=== PATIENT | male | born 1980 | race American Indian/Alaskan Native ===

== ENCOUNTER 2017-04-26 09:22 | Emergency (ER) | payer OTHER ==
[2017-04-26 09:26] VITALS: BP 125/82; PULSE 103; RESP 18; TEMP 98.1; O2SAT 98
--- NOTE | 2017-04-26 10:22 | RAD ---
PROCEDURE: Radiographs of the Right Shoulder HISTORY: r/o fx COMPARISON: No prior. FINDINGS: BONES: Normal. No fracture. JOINTS: Normal. Glenohumeral and acromioclavicular joints preserved. No osteoarthritis. SOFT TISSUES: Normal. OTHER FINDINGS: None. IMPRESSION: Normal radiographs of the right shoulder.
--- NOTE | 2017-04-26 12:55 | C.PDOC ---
History Of Present Illness 36 yr old male presents to the ER with complaints of right shoulder for the past 3 weeks. Patient is right handed. Denies trauma, fall, neck pain, back pain , weakness or numbness. No PMD. Time Seen by Provider: 04/26/17 09:31 Chief Complaint (Nursing): Upper Extremity Problem/Injury History Per: Patient History/Exam Limitations: no limitations Onset/Duration Of Symptoms: Days (3 weeks) Current Symptoms Are (Timing): Still Present Exacerbating Factor(s): Nothing Past Medical History Vital Signs: Last Vital Signs Temp 98.1 F 04/26/17 09:25 Pulse 103 H 04/26/17 09:25 Resp 18 04/26/17 09:25 BP 125/82 04/26/17 09:25 Pulse Ox 98 04/26/17 13:36 - [facility] Procedures OTHER SKIN & SUBQ I D (06/28/15) Family History: States: No Known Family Hx - Social History Hx Tobacco Use: No Hx Alcohol Use: Yes Hx Substance Use: No - Immunization History Hx Tetanus Toxoid Vaccination: No Hx Influenza Vaccination: No Hx Pneumococcal Vaccination: No Review Of Systems Except As Marked, All Systems Reviewed And Found Negative. Musculoskeletal: Positive for: Shoulder Pain (Right shoulder ). Negative for: Neck Pain, Back Pain Neurological: Negative for: Weakness, Numbness Physical Exam - Physical Exam Appears: Non-toxic, No Acute Distress Skin: Warm, Dry, No Rash Head: Atraumatic, Normacephalic Neck: Normal, Normal ROM, Supple Chest: Symmetrical, No Tenderness Cardiovascular: Rhythm Regular, No Murmur Respiratory: Normal Breath Sounds, No Rales, No Rhonchi, No Stridor, No Wheezing Extremity: Capillary Refill (<2), Other ((+) Right Shoulder - Decrease ROM with abbduction.) Pulses: Left Radial: Normal, Right Radial: Normal Neurological/Psych: Oriented x3, Normal Speech, Normal Motor ED Course And Treatment O2 Sat by Pulse Oximetry: 98 - Other Rad X-Ray - Right Shoulder X-Ray: Viewed By Me, Read By Radiologist Interpretation: PROCEDURE: Radiographs of the Right Shoulder. HISTORY: r/o fx. COMPARISON: No prior. FINDINGS: BONES: Normal. No fracture. JOINTS: Normal. Glenohumeral and acromioclavicular joints preserved. No osteoarthritis. SOFT TISSUES: Normal. OTHER FINDINGS: None. IMPRESSION: Normal radiographs of the right shoulder. Medical Decision Making Medical Decision Making: PLAN: * X-Ray - Right Shoulder Disposition - Disposition Referrals: [facility] [Outside] [facility] [Outside] Disposition: HOME/ ROUTINE Disposition Time: 10:05 Condition: GOOD Additional Instructions: Thank you for letting us take care of you today. Your provider was Dr. Robbins. You were treated for shoulder pain. The emergency medical care you received today was directed at your acute symptoms. If you were prescribed any medication, please fill it and take as directed. It may take several days for your symptoms to resolve. Return to the Emergency Department if your symptoms worsen, do not improve, or if you have any other problems. Please contact your doctor or call one of the physicians/clinics you have been referred to that are listed on the Patient Visit Information form that is included in your discharge packet. Bring any paperwork you were given at discharge with you along with any medications you are taking to your follow up visit. Our treatment cannot replace ongoing medical care by a primary care provider (PCP) outside of the emergency department. Thank you for allowing the [facility] team to be part of your care today. Follow up with the clinic for outpatient care and re-evaluation in 5-7 days. Prescriptions: Ibuprofen [Motrin] 600 mg PO Q6 PRN #20 tab PRN Reason: Pain, Moderate (4-7) Instructions: Shoulder Pain (ED) - Clinical Impression Clinical Impression: Shoulder pain - Scribe Statement The provider has reviewed the documentation as recorded by the Dalila Alvarez Provider Attestation: All medical record entries made by the Dalila were at my direction and personally dictated by me. I have reviewed the chart and agree that the record accurately reflects my personal performance of the history, physical exam, medical decision making, and the department course for this patient. I have also personally directed, reviewed, and agree with the discharge instructions and disposition.
== END 2017-04-26 10:32 | disposition home or self-care (01) ==
LOC: C.ER 09:22
DX: M25.511 Pain in right shoulder (principal)

== ENCOUNTER 2017-05-29 11:52 | Emergency (ER) | payer SELFPAY ==
--- NOTE | 2017-05-29 12:11 | C.PDOC ---
History Of Present Illness 36 yo male w/o significant PMHx come in for evaluation of painful mas over Right buttock gradually worse for past 3 days. Pt denies fever, chills, wound draining, denies UTI sx, testicular pain or swelling, denies any other active complaints. Pt reports, similar sx in past, same place. Time Seen by Provider: 05/29/17 12:05 History Per: Patient Onset/Duration Of Symptoms: Gradual Past Medical History Reviewed: Historical Data, Nursing Documentation, Vital Signs Vital Signs: Last Vital Signs Temp 98.7 F 05/29/17 12:15 Pulse 94 H 05/29/17 12:15 Resp 18 05/29/17 12:15 BP 133/94 H 05/29/17 12:15 Pulse Ox 97 05/29/17 12:15 - Medical History PMH: No Chronic Diseases Denies: Alzheimer's Disease, Asthma, Atrial Fibrillation, Bronchitis, Cardia Arrhythmia, Cardiac Aneurysm, CHF, COPD, Dementia, Deep Vein Thrombosis, Emphysema, HTN, Hypercholesterolemia, Hyperlipidemia, Migraine, Mitral Valve Prolapse, Multiple Sclerosis, Parkinson's Disease, Pericarditis, Peripheral Edema, Pneumonia, Pneumothorax, Pulmonary Embolism, Seizures, Sleep Apnea, TIA Surgical History: Denies: Pacemaker - [facility] Procedures OTHER SKIN & SUBQ I D (06/28/15) Family History: States: No Known Family Hx - Social History Hx Tobacco Use: No Hx Alcohol Use: Yes Hx Substance Use: No - Immunization History Hx Tetanus Toxoid Vaccination: No Hx Influenza Vaccination: No Hx Pneumococcal Vaccination: No Review Of Systems Except As Marked, All Systems Reviewed And Found Negative. Constitutional: Negative for: Fever, Chills ENT: Negative for: Throat Pain Gastrointestinal: Negative for: Nausea, Vomiting, Abdominal Pain, Diarrhea Genitourinary: Negative for: Dysuria Musculoskeletal: Negative for: Neck Pain, Back Pain Skin: Positive for: Lesions Neurological: Negative for: Weakness, Numbness Physical Exam - Physical Exam Appears: Well, Non-toxic, No Acute Distress Skin: Normal Color, Warm, Other (Right inner gluteus tender mass 3cm diameter, ( +) erythema, (+) flatulance.) Gastrointestinal/Abdominal: Soft, No Tenderness, No Distention, No Guarding Back: No CVA Tenderness Male Genital: No Testicular Tenderness, No Testicular Swelling, No Scrotal Swelling Extremity: No Pedal Edema, No Deformity Neurological/Psych: Oriented x3, Normal Speech ED Course And Treatment O2 Sat by Pulse Oximetry: 97 Progress Note: On re-eavl, pt is afebrile, hemodynamicaly tsable. Non-toxic. Abd: benign. SKin: Right gluteal abscess s/p I&D. WOund cx-penidng. Pt advised, abx given. Ref. return to ED in 2 days for wound check. Return at any time if any worsening or new changes. - Incision & Drainage Of Abscess Anesthesia: Lidocaine 2% Prep Used: Betadine Procedure: Incised W/Scalpel Blade#:, Drained Pus (5ml), Irrigated Cavity W/ Saline (50ml), Probed To Break Up Loculations, Packed W/Gauze, Cultures Obtained And Sent To Lab Disposition Counseled Patient/Family Regarding: Studies Performed, Diagnosis, Need For Followup, Rx Given - Disposition Disposition: HOME/ ROUTINE Disposition Time: 12:41 Condition: STABLE Additional Instructions: Take medication as prescribed Keep wound clean, dry Return to ED in 2 days for wound check and packing removal. Return to ED at any time if any worsening or new changes. Prescriptions: Sulfamethoxazole/Trimethoprim [Bactrim DS 800 mg-160 mg] 1 tab PO BID #14 tab traMADol [Ultram] 50 mg PO BID #7 tab Instructions: Abscess (ED), Abscess Incision and Drainage (ED) - Clinical Impression Clinical Impression: Abscess
[2017-05-29] MEDS ORDERED: Lidocaine 2% w Epi 1:100,000 Inj IJ ONE (12:16)
[2017-05-29] MEDS ORDERED: Tmp-Smz 800 mg-160 mg DS Tab ONE (12:45)
[2017-05-29] MEDS ORDERED: Tmp-Smz 800 mg-160 mg DS Tab PO SCH (12:45)
[2017-05-29 13:48] VITALS: BP 138/85; PULSE 96; RESP 20; TEMP 98.2; O2SAT 98
== END 2017-05-29 12:47 | disposition home or self-care (01) ==
LOC: C.ER 11:52
DX: L02.31 Cutaneous abscess of buttock (principal); B95.61 Methicillin susceptible Staphylococcus aureus infection as the cause of diseases classified elsewhere

== ENCOUNTER 2017-10-10 10:32 | Observation (INO) | payer SELFPAY ==
--- NOTE | 2017-10-10 11:22 | C.PDOC ---
History Of Present Illness 37 year old male with a PMHx of multiple perirectal abscesses presents to the ED with complaints of a perirectal abscess for 2 days. Patient notes subjective fever. Patient denies chills, weakness, numbness, incontinence, or other complaints at this time. Time Seen by Provider: 10/10/17 10:48 Chief Complaint (Nursing): Abnormal Skin Integrity History Per: Patient History/Exam Limitations: no limitations Onset/Duration Of Symptoms: Days (2) Current Symptoms Are (Timing): Still Present Recent travel outside of the [place]: No Past Medical History Reviewed: Historical Data, Nursing Documentation, Vital Signs Vital Signs: Last Vital Signs Temp 98.1 F 10/10/17 16:10 Pulse 58 L 10/10/17 16:10 Resp 20 10/10/17 16:10 BP 110/68 10/10/17 16:10 Pulse Ox 99 10/10/17 16:10 - Medical History PMH: Denies: Bronchitis, Multiple Sclerosis Surgical History: Denies: Pacemaker - [facility] Procedures OTHER SKIN & SUBQ I D (06/28/15) Family History: States: Unknown Family Hx - Social History Hx Tobacco Use: No Hx Alcohol Use: Yes Hx Substance Use: No - Immunization History Hx Tetanus Toxoid Vaccination: No Hx Influenza Vaccination: No Hx Pneumococcal Vaccination: No Review Of Systems Constitutional: Positive for: Fever (subjective). Negative for: Chills Gastrointestinal: Negative for: Vomiting, Abdominal Pain, Diarrhea Genitourinary: Negative for: Dysuria, Hematuria Skin: Positive for: Other (perianal abscess) Neurological: Negative for: Weakness, Numbness Physical Exam - Physical Exam Appears: Non-toxic, No Acute Distress Skin: Warm, Dry, Other (fluctuant, 3 cm round, fluctuant perirectal abscess on right side, ( no drainage) with pustule about 1 cm lateral) Head: Atraumatic, Normacephalic, No Tenderness Eye(s): bilateral: Normal Inspection Oral Mucosa: Moist Neck: Supple Chest: Symmetrical, No Deformity Cardiovascular: No Murmur, Other (patient is tachycardic) Respiratory: No Rales, No Rhonchi, No Wheezing, Other (clear to auscultation bilaterally) Gastrointestinal/Abdominal: Soft, No Tenderness, No Distention, No Guarding, No Rebound Rectal: Tenderness (right side of rectum ), Other (perirectal abscess 3 cm, fluctuant) Back: No Vertebral Tenderness, No Paraspinal Tenderness Extremity: Normal ROM, No Tenderness Neurological/Psych: Oriented x3, Normal Speech, Normal Cognition ED Course And Treatment - Laboratory Results Result Diagrams: 10/10/17 11:27 10/10/17 11:27 O2 Sat by Pulse Oximetry: 97 (RA) Pulse Ox Interpretation: Normal - CT Scan/US Abdomen Pelvis CT Other Rad Studies (CT/US): Read By Radiologist, Radiology Report Reviewed CT/US Interpretation: FINDINGS: LOWER THORAX: There is dependent atelectasis in the lungs. LIVER: The liver is normal in size and there is homogeneous enhancement. No gross lesion or ductal dilatation. GALLBLADDER AND BILE DUCTS: There are no calcified gallstones. PANCREAS: Normal in size with homogeneous enhancement. No gross lesion or ductal dilatation. SPLEEN: Normal in size and appearance. ADRENALS: No discrete nodule. KIDNEYS AND URETERS: Normal in size with homogeneous enhancement. No hydronephrosis. No solid mass. VASCULATURE: No aortic aneurysm. BOWEL: The small bowel loops are normal in caliber. The colon is unremarkable. There is no bowel dilatation or obstruction. There is a 3.8 x 2.8 x 4.0 cm locular peripheral rim enhancing collection in the right hemipelvis abutting the right lateral wall of the sigmoid colon. There is also a smaller more posterior fluid collection. APPENDIX: Normal appendix. PERITONEUM: No free fluid. No free air. LYMPH NODES: No enlarged lymph nodes. BLADDER: Grossly normal in appearance. REPRODUCTIVE: The prostate gland is normal in size. BONES: No acute fracture. Within normal limits for the patient's age. OTHER FINDINGS: There is a 2.6 x 1.9 cm fluid density collection in the right perianal region. There is also soft tissue swelling and extensive fat stranding in the right ischiorectal fossa. IMPRESSION: Findings are most compatible with 2.6 x 1.9 cm right perianal fluid collection/ abscess and 3.8 x 2.8 x 4.0 cm multilocular fluid collection/ abscess in the right hemipelvis. Progress Note: Abdomen & Pelvis CT, blood work and labs were ordered. Patient was given morphine. Medical Decision Making Medical Decision Making: pt with perirectal abscess; will get labs, ct ab/pelvis with iv contrast to fully evaluate abscess and surgical consult. 220 pm pt seen by surgery, will admit to Dr Vital;s service, give iv antibiotic, npo after midnight. Disposition Discussed With .: Melyssa Vital Doctor Will See Patient In The: Hospital - Disposition Disposition: HOSPITALIZED Disposition Time: 14:30 Condition: STABLE - Clinical Impression Clinical Impression: Kailey-rectal abscess - PA / [employer] / Resident Statement MD/DO has reviewed & agrees with the documentation as recorded. - Scribe Statement The provider has reviewed the documentation as recorded by the Scribe Shannan Simons All medical record entries made by the Kathrynibphil were at my direction and personally dictated by me. I have reviewed the chart and agree that the record accurately reflects my personal performance of the history, physical exam, medical decision making, and the department course for this patient. I have also personally directed, reviewed, and agree with the discharge instructions and disposition.
[2017-10-10 11:38] LABS: BASO # 0.1 K/uL (0.0-0.2); BASO % 0.5 % (0.0-2.0); EOS # 0.1 K/uL (0.0-0.7); EOS % 0.5 % (0.0-4.0); HEMATOCRIT 48.1 % (35.0-51.0); LYMPH # 1.5 K/uL (1.0-4.3); LYMPH % 13.1 % (20.0-40.0); MEAN CELL VOLUME 91.9 fL (80.0-94.0); MEAN CORPUSCULAR HEMOGLOBIN 31.2 pg (27.0-31.0); MEAN PLATELET VOLUME 7.7 fL (7.2-11.7); MONO # 1.1 K/uL (0.0-0.8); MONO % 9.5 % (0.0-10.0); RED CELL DISTRIBUTION WIDTH 14.7 % (11.5-14.5); WHITE BLOOD COUNT 11.5 K/uL (4.8-10.8)
[2017-10-10 11:43] LABS: INR 1.1
[2017-10-10 11:52] LABS: ALB/GLOB RATIO 1.1 (1.0-2.1); ALKALINE PHOSPHATASE 73 U/L (38-126); ALT/SGPT 19 U/L (21-72); AST/SGOT 18 U/L (17-59); BILIRUBIN,TOTAL 1.2 mg/dL (0.2-1.3); BLOOD UREA NITROGEN 7 mg/dL (9-20); CALCIUM 8.3 mg/dl (8.6-10.4); CARBON DIOXIDE 28 mmol/L (22-30); CHLORIDE 100 mmol/L (98-107); GFR AFRICAN-AMERICAN > 60; GLUCOSE,RANDOM 98 mg/dL (75-110); POTASSIUM 3.5 mmol/L (3.6-5.2); SODIUM 133 mmol/L (132-148); TOTAL PROTEIN 7.4 g/dL (6.3-8.3)
[2017-10-10] MEDS ORDERED: Iodixanol 320 MG/ML 100 ML BOTTLE IV ONE (12:01)
[2017-10-10] MEDS ORDERED: Lactated Ringer's 1,000 ML IV ONE (12:03)
[2017-10-10] MEDS ORDERED: Lactated Ringer's 1,000 ML ONE (12:13)
--- NOTE | 2017-10-10 13:18 | CT ---
PROCEDURE: CT Abdomen and Pelvis with contrast HISTORY: eval right side perirectal abscess COMPARISON: None. TECHNIQUE: CT scan of the abdomen and pelvis was performed after intravenous administration of contrast oral contrast was not administered. Coronal and sagittal reformatted images were obtained. Contrast dose: 100 mL Visipaque Radiation dose: Total exam DLP = 297.19 mGy-cm. This CT exam was performed using one or more of the following dose reduction techniques: Automated exposure control, adjustment of the mA and/or kV according to patient size, and/or use of iterative reconstruction technique. FINDINGS: LOWER THORAX: There is dependent atelectasis in the lungs. LIVER: The liver is normal in size and there is homogeneous enhancement. No gross lesion or ductal dilatation. GALLBLADDER AND BILE DUCTS: There are no calcified gallstones. PANCREAS: Normal in size with homogeneous enhancement. No gross lesion or ductal dilatation. SPLEEN: Normal in size and appearance. ADRENALS: No discrete nodule. KIDNEYS AND URETERS: Normal in size with homogeneous enhancement. No hydronephrosis. No solid mass. VASCULATURE: No aortic aneurysm. BOWEL: The small bowel loops are normal in caliber. The colon is unremarkable. There is no bowel dilatation or obstruction. There is a 3.8 x 2.8 x 4.0 cm locular peripheral rim enhancing collection in the right hemipelvis abutting the right lateral wall of the sigmoid colon. There is also a smaller more posterior fluid collection. APPENDIX: Normal appendix. PERITONEUM: No free fluid. No free air. LYMPH NODES: No enlarged lymph nodes. BLADDER: Grossly normal in appearance. REPRODUCTIVE: The prostate gland is normal in size. BONES: No acute fracture. Within normal limits for the patient's age. OTHER FINDINGS: There is a 2.6 x 1.9 cm fluid density collection in the right perianal region. There is also soft tissue swelling and extensive fat stranding in the right ischiorectal fossa IMPRESSION: Findings are most compatible with 2.6 x 1.9 cm right perianal fluid collection/ abscess and 3.8 x 2.8 x 4.0 cm multilocular fluid collection/ abscess in the right hemipelvis.
[2017-10-10] MEDS ORDERED: Piperacill/Tazo 3.375gm in Dex 3.375 GM/50 ML BAG IVPB STA (14:28)
--- NOTE | 2017-10-10 15:47 | CP.PCM.HP ---
History of Present Illness - History of Present Illness History of Present Illness: - History of Present Illness History of Present Illness: General Surgery Consult Note for Dr. Vital This 37M with a PMH of repeat self treated gluteal abscesses presents to the Ed with a gluteal abscess. he reports that he has had subjective fevers and gluteal pain for 2 days. Nothing makes it better and touching it makes it worse. Today he comes to the ED with self draining malodorus abscess. He went for a CT scan which is significant for a gluteal abscess and a pericolonic rim enhancing lesion. He denies any chest pain SOB nausea vomiting or diarrhea. PMH:George PSH: Denies Social: Denies tobacco, etoh, drugs All: NKDA Review of Systems - Review of Systems All systems: reviewed and no additional remarkable complaints except - Constitutional Constitutional: Chills, Fever - Integumentary Integumentary: New Lesions Past Patient History - Infectious Disease Hx of Infectious Diseases: None - Past Social History Smoking Status: Cigars - CARDIAC Hx Pacemaker: No - PULMONARY Hx Bronchitis: No - NEUROLOGICAL Hx Multiple Sclerosis: No - HEENT Other/Comment: None - RENAL Other/Comment: none - ENDOCRINE/METABOLIC Other/Comment: None - HEMATOLOGICAL/ONCOLOGICAL Other/Comment: None - INTEGUMENTARY Other/Comment: None - MUSCULOSKELETAL/RHEUMATOLOGICAL Other/Comment: None - GASTROINTESTINAL Other/Comment: None - GENITOURINARY/GYNECOLOGICAL Other/Comment: None - PSYCHIATRIC Hx Substance Use: No - SURGICAL HISTORY Hx Surgeries: No Other/Comment: None - ANESTHESIA Hx Anesthesia: No Meds Allergies/Adverse Reactions: Allergies Allergy/AdvReac Type Severity Reaction Status Date / Time No Known Allergies Allergy Verified 10/10/17 10:48 Physical Exam - Constitutional Appears: Non-toxic, No Acute Distress - Head Exam Head Exam: ATRAUMATIC, NORMOCEPHALIC - Eye Exam Eye Exam: EOMI - ENT Exam ENT Exam: Mucous Membranes Moist - Respiratory Exam Respiratory Exam: NORMAL BREATHING PATTERN - Cardiovascular Exam Cardiovascular Exam: REGULAR RHYTHM, +S1, +S2 - GI/Abdominal Exam GI & Abdominal Exam: Soft. absent: Distended, Rigid - Rectal Exam Additional comments: Gluteal abscess with purulent drainage, no blood or purulence with ARPIT. - Neurological Exam Neurological exam: Alert, Oriented x3 Results - Vital Signs Recent Vital Signs: Last Vital Signs Temp 98.1 F 10/10/17 14:14 Pulse 69 10/10/17 14:14 Resp 18 10/10/17 14:14 BP 120/73 10/10/17 14:14 Pulse Ox 97 10/10/17 14:32 - Labs Result Diagrams: 10/10/17 11:27 10/10/17 11:27 Labs: Laboratory Results - last 24 hr 10/10/17 10/10/17 10/10/17 11:27 11:27 11:27 WBC 11.5 H RBC 5.23 Hgb 16.3 Hct 48.1 MCV 91.9 MCH 31.2 H MCHC 34.0 RDW 14.7 H Plt Count 244 MPV 7.7 Neut % (Auto) 76.4 H Lymph % (Auto) 13.1 L Dickson % (Auto) 9.5 Eos % (Auto) 0.5 Baso % (Auto) 0.5 Neut # 8.8 H Lymph # 1.5 Dickson # 1.1 H Eos # 0.1 Baso # 0.1 PT 12.9 H INR 1.1 APTT 35 H Sodium 133 Potassium 3.5 L Chloride 100 Carbon Dioxide 28 Anion Gap 8 L BUN 7 L Creatinine 0.8 Est GFR ( Amer) > 60 Est GFR (Non-Af Amer) > 60 Random Glucose 98 Calcium 8.3 L Total Bilirubin 1.2 AST 18 ALT 19 L Alkaline Phosphatase 73 Total Protein 7.4 Albumin 3.9 Globulin 3.5 Albumin/Globulin Ratio 1.1 Assessment & Plan - Assessment and Plan (Free Text) Assessment: 37M with gluteal and pelvic abscess IV ABX NPO after midnight Warm compress on gluteal abscess IVF Will re-evaluate in AM Discussed with Dr. Amanuel Wilson PGY2 Present on Admission - Present on Admission Any Indicators Present on Admission: No Past Patient History - Infectious Disease Hx of Infectious Diseases: None - Past Social History Smoking Status: Cigars - CARDIAC Hx Pacemaker: No - PULMONARY Hx Bronchitis: No - NEUROLOGICAL Hx Multiple Sclerosis: No - HEENT Other/Comment: None - RENAL Other/Comment: none - ENDOCRINE/METABOLIC Other/Comment: None - HEMATOLOGICAL/ONCOLOGICAL Other/Comment: None - INTEGUMENTARY Other/Comment: None - MUSCULOSKELETAL/RHEUMATOLOGICAL Other/Comment: None - GASTROINTESTINAL Other/Comment: None - GENITOURINARY/GYNECOLOGICAL Other/Comment: None - PSYCHIATRIC Hx Substance Use: No - SURGICAL HISTORY Hx Surgeries: No Other/Comment: None - ANESTHESIA Hx Anesthesia: No Meds Allergies/Adverse Reactions: Allergies Allergy/AdvReac Type Severity Reaction Status Date / Time No Known Allergies Allergy Verified 10/10/17 10:48 Results - Vital Signs Recent Vital Signs: Last Vital Signs Temp 98.1 F 10/10/17 14:14 Pulse 69 10/10/17 14:14 Resp 18 10/10/17 14:14 BP 120/73 10/10/17 14:14 Pulse Ox 97 10/10/17 14:32 - Labs Result Diagrams: 10/10/17 11:27 10/10/17 11:27 Labs: Laboratory Results - last 24 hr 10/10/17 10/10/17 10/10/17 11:27 11:27 11:27 WBC 11.5 H RBC 5.23 Hgb 16.3 Hct 48.1 MCV 91.9 MCH 31.2 H MCHC 34.0 RDW 14.7 H Plt Count 244 MPV 7.7 Neut % (Auto) 76.4 H Lymph % (Auto) 13.1 L Dickson % (Auto) 9.5 Eos % (Auto) 0.5 Baso % (Auto) 0.5 Neut # 8.8 H Lymph # 1.5 Dickson # 1.1 H Eos # 0.1 Baso # 0.1 PT 12.9 H INR 1.1 APTT 35 H Sodium 133 Potassium 3.5 L Chloride 100 Carbon Dioxide 28 Anion Gap 8 L BUN 7 L Creatinine 0.8 Est GFR ( Amer) > 60 Est GFR (Non-Af Amer) > 60 Random Glucose 98 Calcium 8.3 L Total Bilirubin 1.2 AST 18 ALT 19 L Alkaline Phosphatase 73 Total Protein 7.4 Albumin 3.9 Globulin 3.5 Albumin/Globulin Ratio 1.1
[2017-10-10] MEDS ORDERED: Piperacillin/Tazobact 3.375 GM in Sodium Chloride 100 ML IVPB SCH (16:00)
[2017-10-10 16:11] VITALS: RESP 20
[2017-10-10] MEDS: Piperacill/Tazo 3.375gm in Dex 3.375 GM/50 ML BAG IVPB SCH (22:32)
[2017-10-11 00:04] VITALS: O2SAT 99
[2017-10-11] MEDS: Piperacill/Tazo 3.375gm in Dex 3.375 GM/50 ML BAG IVPB SCH (06:05)
[2017-10-11] MEDS ORDERED: Lactated Ringer's 1,000 ML IV SCH (06:15)
[2017-10-11 06:27] LABS: BASO % 0.4 % (0.0-2.0); EOS # 0.1 K/uL (0.0-0.7); EOS % 1.9 % (0.0-4.0); HEMATOCRIT 47.2 % (35.0-51.0); LYMPH # 1.6 K/uL (1.0-4.3); LYMPH % 20.9 % (20.0-40.0); MEAN CELL VOLUME 93.5 fL (80.0-94.0); MEAN CORPUSCULAR HEMOGLOBIN 31.6 pg (27.0-31.0); MEAN CORPUSCULAR HGB CONC 33.8 g/dL (33.0-37.0); MEAN PLATELET VOLUME 8.2 fL (7.2-11.7); MONO # 0.5 K/uL (0.0-0.8); MONO % 6.7 % (0.0-10.0); NRBC % 0.1 % (0.0-2.0); RED CELL DISTRIBUTION WIDTH 14.8 % (11.5-14.5); WHITE BLOOD COUNT 7.4 K/uL (4.8-10.8)
[2017-10-11 06:48] LABS: INR 1.2
--- NOTE | 2017-10-11 07:34 | CP.PCM.PN ---
Subjective - Date & Time of Evaluation Date of Evaluation: 10/11/17 Time of Evaluation: 07:32 - Subjective Subjective: General Surgery: Dr Vital Pt S&E. Reports feeling much better. Abscess has been draining independently. Denies F/C, N/V. CT reviewed, intra-abdominal abscess is very small, likely too small for IR drainage. Pt is asymptomatic. Denies any pain on defecation, constipation or diarrhea. Objective - Vital Signs/Intake and Output Vital Signs (last 24 hours): Temp Pulse Resp BP Pulse Ox 98.2 F 52 L 20 104/64 99 10/11/17 00:00 10/11/17 00:00 10/11/17 00:00 10/11/17 00:00 10/11/17 00:00 Intake and Output: 10/11/17 10/11/17 06:59 18:59 Intake Total 375 Balance 375 - Medications Medications: Current Medications Piperacillin Sod/Tazobactam Sod (Zosyn 3.375 Gm Iv Premix) 3.375 gm in 50 mls @ 100 mls/hr IVPB Q8H [place] Last Admin: 10/11/17 06:05 Dose: 100 mls/hr Lactated Ringer's (Lactated Ringer's) 1,000 mls @ 100 mls/hr IV .Q10H [place] Last Admin: 10/11/17 06:49 Dose: 100 mls/hr Ketorolac Tromethamine (Toradol) 30 mg IVP Q6 [place] Last Admin: 10/11/17 06:06 Dose: Not Given Pneumococcal Polyvalent Vaccine (Pneumovax 23 Vaccine) 0.5 ml IM .ONCE ONE Stop: 10/12/17 10:01 - Labs Labs: 10/11/17 06:04 10/10/17 11:27 PT 12.9 SECONDS (9.7-12.2) H 10/11/17 06:04 INR 1.2 10/11/17 06:04 APTT 34 SECONDS (21-34) 10/11/17 06:04 - Constitutional Appears: Non-toxic, No Acute Distress - Head Exam Head Exam: NORMAL INSPECTION - Eye Exam Eye Exam: Normal appearance - ENT Exam ENT Exam: Mucous Membranes Moist - Respiratory Exam Respiratory Exam: absent: Accessory Muscle Use, Respiratory Distress - Cardiovascular Exam Cardiovascular Exam: REGULAR RHYTHM. absent: Tachycardia - GI/Abdominal Exam GI & Abdominal Exam: Soft. absent: Distended, Firm, Guarding, Tenderness - Rectal Exam Additional comments: area of induration on right gluteus. Draining spontaneously - Neurological Exam Neurological Exam: Alert, Awake, Oriented x3 - Psychiatric Exam Psychiatric exam: Normal Affect, Normal Mood - Skin Skin Exam: Normal Color, Warm Assessment and Plan - Assessment and Plan (Free Text) Assessment: 37M with gluteal abscess Plan: pt now asymptomatic - gluteal abscess spontaneously draining cont IV abx resume regular diet no surgical intervention planned continue warm compresses now and upon discharge pt clear for d/c on PO abx d/w Dr Amanuel Ruiz, PGY3
[2017-10-11 07:43] VITALS: BP 103/63; PULSE 56; TEMP 98.3
[2017-10-11 08:26] LABS: ALB/GLOB RATIO 1.1 (1.0-2.1); ALKALINE PHOSPHATASE 64 U/L (38-126); ALT/SGPT 18 U/L (21-72); AST/SGOT 22 U/L (17-59); BILIRUBIN,TOTAL 0.9 mg/dL (0.2-1.3); BLOOD UREA NITROGEN 9 mg/dL (9-20); CALCIUM 8.1 mg/dl (8.6-10.4); CARBON DIOXIDE 29 mmol/L (22-30); CHLORIDE 100 mmol/L (98-107); GFR AFRICAN-AMERICAN > 60; GLUCOSE,RANDOM 79 mg/dL (75-110); POTASSIUM 3.6 mmol/L (3.6-5.2); SODIUM 132 mmol/L (132-148); TOTAL PROTEIN 6.7 g/dL (6.3-8.3)
[2017-10-11] MEDS ORDERED: Pneumococcal 23-Valent Vaccine IM ONE (12:00)
[2017-10-11] MEDS ORDERED: Influenza Vaccine 60 mcg/0.5 mL SYR (4YR UP) IM ONE (12:00)
--- NOTE | 2017-10-11 12:33 | CP.PCM.DIS ---
Provider - Provider Date of Admission: 10/10/17 14:27 Attending physician: Melyssa Vital MD Time Spent in preparation of Discharge (in minutes): 5 Hospital Course - Lab Results Lab Results: Most Recent Lab Values WBC 7.4 K/uL (4.8-10.8) 10/11/17 06:04 RBC 5.05 Mil/uL (4.40-5.90) 10/11/17 06:04 Hgb 15.9 g/dL (12.0-18.0) 10/11/17 06:04 Hct 47.2 % (35.0-51.0) 10/11/17 06:04 MCV 93.5 fL (80.0-94.0) 10/11/17 06:04 MCH 31.6 pg (27.0-31.0) H 10/11/17 06:04 MCHC 33.8 g/dL (33.0-37.0) 10/11/17 06:04 RDW 14.8 % (11.5-14.5) H 10/11/17 06:04 Plt Count 257 K/uL (130-400) 10/11/17 06:04 MPV 8.2 fL (7.2-11.7) 10/11/17 06:04 Neut % (Auto) 70.1 % (50.0-75.0) 10/11/17 06:04 Lymph % (Auto) 20.9 % (20.0-40.0) 10/11/17 06:04 [place] % (Auto) 6.7 % (0.0-10.0) 10/11/17 06:04 Eos % (Auto) 1.9 % (0.0-4.0) 10/11/17 06:04 Baso % (Auto) 0.4 % (0.0-2.0) 10/11/17 06:04 Neut # 5.2 K/uL (1.8-7.0) 10/11/17 06:04 Lymph # 1.6 K/uL (1.0-4.3) 10/11/17 06:04 [place] # 0.5 K/uL (0.0-0.8) 10/11/17 06:04 Eos # 0.1 K/uL (0.0-0.7) 10/11/17 06:04 Baso # 0.0 K/uL (0.0-0.2) 10/11/17 06:04 PT 12.9 SECONDS (9.7-12.2) H 10/11/17 06:04 INR 1.2 10/11/17 06:04 APTT 34 SECONDS (21-34) 10/11/17 06:04 Sodium 132 mmol/L (132-148) 10/11/17 06:04 Potassium 3.6 mmol/L (3.6-5.2) 10/11/17 06:04 Chloride 100 mmol/L (98-107) 10/11/17 06:04 Carbon Dioxide 29 mmol/L (22-30) 10/11/17 06:04 Anion Gap 7 (10-20) L 10/11/17 06:04 BUN 9 mg/dL (9-20) 10/11/17 06:04 Creatinine 0.8 mg/dL (0.8-1.5) 10/11/17 06:04 Est GFR ( Amer) > 60 10/11/17 06:04 Est GFR (Non-Af Amer) > 60 10/11/17 06:04 Random Glucose 79 mg/dL (75-110) 10/11/17 06:04 Calcium 8.1 mg/dl (8.6-10.4) L 10/11/17 06:04 Total Bilirubin 0.9 mg/dL (0.2-1.3) 10/11/17 06:04 AST 22 U/L (17-59) 10/11/17 06:04 ALT 18 U/L (21-72) L 10/11/17 06:04 Alkaline Phosphatase 64 U/L (38-126) 10/11/17 06:04 Total Protein 6.7 g/dL (6.3-8.3) 10/11/17 06:04 Albumin 3.5 g/dL (3.5-5.0) 10/11/17 06:04 Globulin 3.2 gm/dL (2.2-3.9) 10/11/17 06:04 Albumin/Globulin Ratio 1.1 (1.0-2.1) 10/11/17 06:04 - Hospital Course Hospital Course: 37M admitted for gluteal abscess. Abscess was draining when examined in ED. Pt admitted for IV abx. WBC normal today. abscess continues to drain. Abscess within abdomen on CT is extremely small, unamenable to perc drainage and pt is asymptomatic. D/C with wound care instructions and Augmentin for 10 days. Instructed to return if develops fevers, abdominal pain or abscess enlarges Discharge Exam - Head Exam Head Exam: NORMAL INSPECTION Discharge Plan - Discharge Medications Prescriptions: Amoxicillin/Clavulanate [Augmentin 500 MG-125 MG] 1 tab PO BID #20 tab - Follow Up Plan Condition: STABLE Disposition: HOME/ ROUTINE Instructions: Amoxicillin/Clavulanate Potassium (By mouth), Abscess (GEN) Additional Instructions: Stable for discharge per Dr. Vital. Patient to continue placing warm compress to area. Medications: Augmentin 500/125mg twice a day for 10 days. Please follow up with Dr. Vital in one week.
[2017-10-12] MEDS ORDERED: Influenza Vaccine 60 mcg/0.5 mL SYR (4YR UP) IM ONE (10:00)
[2017-10-12] MEDS ORDERED: Pneumococcal 23-Valent Vaccine IM ONE (10:00)
== END 2017-10-11 13:14 | disposition home or self-care (01) ==
LOC: C.ER 10:32 → C.9E 14:27 → C.3T 15:18
PROVIDERS: ADMIT Specialist; ATTEND Specialist
DX: K61.1 Rectal abscess (principal); L02.31 Cutaneous abscess of buttock
CPT/HCPCS: 36415; 74177; 80053; 85025; 85610; 85730; 90674; 90732; 96361; 96365; 96375; 99285; G0008; G0009; G0378; J1885; J2270; J2543; J7120; Q9967